=== PATIENT | male | born 1960 | race African-American/Black ===

== ENCOUNTER 2018-09-28 17:34 | Emergency (ER) | payer MEDICARE ==
[~2018-09-28] VITALS: Ht 188 cm; Wt 100.0 kg
[2018-09-28] MEDS ORDERED: KETOROLAC 60MG/2ML VIAL IM ONE (18:15)
[2018-09-28] MEDS ORDERED: HYDROCODONE/ACETAMINOPHEN 5/325MG TABLET PO ONE (18:15)
[2018-09-28] MEDS ORDERED: DIAZEPAM 5 MG TABLET PO ONE (18:15)
[2018-09-28] MEDS ORDERED: ONDANSETRON 4MG ODT PO ONE (18:15)
[2018-09-28 20:11] VITALS: BP 136/88
== END 2018-09-28 20:12 | disposition home or self-care (01) ==
LOC: ER 17:34
DX: M54.40 Lumbago with sciatica, unspecified side (principal); I10 Essential (primary) hypertension; E78.00 Pure hypercholesterolemia, unspecified; E11.9 Type 2 diabetes mellitus without complications; E03.9 Hypothyroidism, unspecified; F17.290 Nicotine dependence, other tobacco product, uncomplicated
CPT/HCPCS: 72100; 96372; 99284; 99406; J1885; Q0162

== ENCOUNTER 2020-06-12 01:31 | Emergency (ER) | payer OTHER ==
[~2020-06-12] VITALS: Ht 182.9 cm; Wt 104.0 kg
[~2020-06-12 01:31] MED LIST: ATOR10TA MT; LEVO25TA7 MT; LOSA25TA26 MT; METF-414 MT
[2020-06-12 02:41] LABS: BASOPHILS % 0.2 % (0.0-2.0); HEMATOCRIT. 31.8 % (42.0-52.0); HEMOGLOBIN. 10.9 g/dL (14.0-18.0); LYMPHOCYTES % 16.5 % (20.0-50.0); MEAN CORPUSCULAR HEMOGLOBIN 32.4 pg (28.0-32.0); MEAN CORPUSCULAR VOLUME 94.1 fL (80.0-94.0); MEAN PLATELET VOLUME 8.3 fl (7.4-10.4); NEUTROPHILS % 79.3 % (40.0-76.0); PLATELET 188 x1000/uL (130-400); RED BLOOD CELL COUNT 3.38 mill/uL (4.7-6.1)
[2020-06-12 02:47] LABS: CHLORIDE 102 mEq/L (98-107)
[2020-06-12 05:00] VITALS: BP 122/80
[2020-06-12] MEDS ORDERED: AZIT250T12 MT (05:06)
[2020-06-12] MEDS ORDERED: IOHEXOL-300 100 ML BOTTLE ONE (05:10)
== END 2020-06-12 06:43 | disposition home or self-care (01) ==
LOC: ER 01:31
DX: U07.1 COVID-19 (principal); J18.9 Pneumonia, unspecified organism; E78.00 Pure hypercholesterolemia, unspecified; I10 Essential (primary) hypertension; E11.9 Type 2 diabetes mellitus without complications; Z79.899 Other long term (current) drug therapy
CPT/HCPCS: 36415; 71045; 71275; 80053; 83605; 83880; 84484; 85025; 85379; 87040; 93005; 99285; Q9967

== ENCOUNTER 2020-08-20 20:00 | Emergency (ER) | payer OTHER ==
[~2020-08-20] VITALS: Ht 188 cm; Wt 107.0 kg
[~2020-08-20 20:00] MED LIST changes: +AZIT250T12 MT
[2020-08-20] MEDS ORDERED: KETOROLAC 30MG/ML VIAL IM ONE (23:30)
[2020-08-21] MEDS ORDERED: BACL-141 MT (01:12)
[2020-08-21] MEDS ORDERED: IBUP-2029 MT (01:12)
[2020-08-21 02:57] VITALS: BP 145/96
== END 2020-08-21 02:58 | disposition home or self-care (01) ==
LOC: ER 20:00
DX: M54.5 Low back pain (principal); I10 Essential (primary) hypertension; E78.00 Pure hypercholesterolemia, unspecified; Z79.899 Other long term (current) drug therapy
CPT/HCPCS: 72100; 96372; 99283; J1885

== ENCOUNTER 2023-03-09 03:34 | Emergency (ER) | payer OTHER ==
[~2023-03-09] VITALS: Ht 188 cm; Wt 107.0 kg
[~2023-03-09 03:34] MED LIST changes: +BACL-141 MT; +IBUP-2029 MT; +LIDO1ADH5 TP; +NAPR-1176 PO
[2023-03-09 03:52] VITALS: O2SAT 98
[2023-03-09] MEDS ORDERED: TOPUD PO (05:21)
[2023-03-09] MEDS ORDERED: B50 PO (05:21)
[2023-03-09] MEDS ORDERED: IBUP-2028 PO (05:21)
[2023-03-09] MEDS ORDERED: ACETAMINOPHEN 325MG TABLET PO ONE (05:30)
[2023-03-09] MEDS ORDERED: IBUPROFEN 400MG TABLET PO ONE (05:30)
[2023-03-09] MEDS ORDERED: METOCLOPRAMIDE HCL 10MG TABLET PO ONE (05:30)
[2023-03-09 05:45] VITALS: BP 114/90
[2023-03-09 05:47] VITALS: PULSE 79; RESP 16; TEMP 97.8
== END 2023-03-09 05:48 | disposition home or self-care (01) ==
LOC: ER 03:34
DX: R51.9 Headache, unspecified (principal); E11.9 Type 2 diabetes mellitus without complications; E78.00 Pure hypercholesterolemia, unspecified; I10 Essential (primary) hypertension; Z79.899 Other long term (current) drug therapy
CPT/HCPCS: 99284; J8597

== ENCOUNTER 2023-03-31 05:09 | Emergency (ER) | payer OTHER ==
[~2023-03-31] VITALS: Ht 188 cm; Wt 107.0 kg
[~2023-03-31 05:09] MED LIST changes: +B50 PO; +IBUP-2028 PO; +TOPUD PO
[2023-03-31 05:46] VITALS: O2SAT 97
[2023-03-31 06:09] LABS: BASOPHILS % 0.5 % (0.0-2.0); EOSINOPHILS % 1.6 % (0.0-5.0); HEMATOCRIT. 30.9 % (42.0-52.0); HEMOGLOBIN. 10.5 g/dL (14.0-18.0); LYMPHOCYTES % 30.1 % (20.0-50.0); MEAN CORPUSCULAR HEMOGLOBIN 32.4 pg (28.0-32.0); MEAN CORPUSCULAR VOLUME 95.2 fL (80.0-94.0); MEAN PLATELET VOLUME 7.4 fl (7.4-10.4); MONOCYTES % 5.3 % (2.0-8.0); NEUTROPHILS % 62.5 % (40.0-76.0); PLATELET 262 x1000/uL (130-400); RED BLOOD CELL COUNT 3.25 mill/uL (4.7-6.1); RED CELL DISTRIBUTION WIDTH 14.1 % (11.6-14.6); WHITE BLOOD COUNT 6.2 x1000/uL (4.5-11.0)
[2023-03-31 06:35] LABS: ALANINE AMINOTRANSFERASE 15 IU/L (10-49); ALBUMIN 4.3 g/dL (3.2-4.8); ASPARTATE AMINOTRANSFERASE 16 IU/L (<34); BILIRUBIN TOTAL 0.7 mg/dL (0.1-1.0); CALCIUM 9.2 mg/dL (8.7-10.4); CARBON DIOXIDE 28 mEq/L (21-32); CHLORIDE 105 mEq/L (98-107); CREATININE 0.9 mg/dL (0.6-1.3); GLUCOSE 105 mg/dL (70-105); POTASSIUM 3.5 mEq/L (3.5-5.1); PROTEIN TOTAL 7.3 g/dL (6.0-8.3); SODIUM 142 mEq/L (136-145); UREA NITROGEN BLOOD 13 mg/dL (9-23)
[2023-03-31] MEDS ORDERED: IBUPROFEN 600MG TABLET PO ONE (06:45)
[2023-03-31] MEDS ORDERED: IBUP-2029 MT (06:52)
[2023-03-31] MEDS ORDERED: METO-293 MT (06:52)
[2023-03-31 06:55] VITALS: BP 125/85
[2023-03-31 06:59] VITALS: PULSE 73; RESP 16; TEMP 98.2
== END 2023-03-31 07:04 | disposition home or self-care (01) ==
LOC: ER 05:09
DX: G44.209 Tension-type headache, unspecified, not intractable (principal); E11.9 Type 2 diabetes mellitus without complications
CPT/HCPCS: 36415; 80053; 85025; 99284

== ENCOUNTER 2025-03-09 12:10 | Emergency (ER) | payer MEDICARE, OTHER ==
[~2025-03-09] VITALS: Ht 188 cm; Wt 104.0 kg
[~2025-03-09 12:10] MED LIST changes: -B50 PO; +DIPH50CA42 PO; +IBUP-1455 MT; -IBUP-2029 MT; +METO-293 MT
[2025-03-09 12:17] VITALS: O2SAT 98
[2025-03-09] MEDS ORDERED: DOXY150C8 MT (14:11)
[2025-03-09] MEDS ORDERED: NAPR-1164 MT (14:12)
[2025-03-09 14:20] VITALS: BP 156/103; PULSE 89; RESP 18; TEMP 36.7; O2SAT 98
== END 2025-03-09 14:27 | disposition home or self-care (01) ==
LOC: ER 12:10
DX: N61.0 Mastitis without abscess (principal); E11.9 Type 2 diabetes mellitus without complications; I10 Essential (primary) hypertension; Z79.899 Other long term (current) drug therapy
CPT/HCPCS: 71045; 99283